=== PATIENT | male | born 1995 | race Caucasian/White ===

== ENCOUNTER 2017-10-09 13:59 | Emergency (ER) | payer BC ==
[2017-10-09] MEDS ORDERED: SODIUM CHLORIDE 0.9% 1,000 ML IV STA (14:33)
[2017-10-09] MEDS ORDERED: DICYCLOMINE 10 MG/ML 2 ML AMP IM STA (14:33)
[2017-10-09] MEDS ORDERED: ONDANSETRON 4 MG/2 ML VIAL IVP STA (14:33)
[2017-10-09] MEDS ORDERED: FAMOTIDINE 20 MG/2 ML VIAL IV STA (14:34)
--- NOTE | 2017-10-09 14:37 | ED ---
General Adult HPI - General Chief complaint: Nausea/Vomiting/Diarrhea Stated complaint: Vomiting Time Seen by Provider: 10/09/17 14:21 Source: patient, RN notes reviewed Mode of arrival: ambulatory Limitations: no limitations - History of Present Illness Initial comments: Patient is a pleasant 22-year-old male presenting to the emergency Department with complaints of nausea vomiting and diarrhea. Onset was early this morning. Patient has vomited around 4 times. Patient still has nausea. Patient has only been able to tolerate around a half a glass of water today and a couple crackers. Patient has had a few episodes of diarrhea. Patient does have some waxing and waning epigastric cramping. No history of chronic abdominal problems. No fever. - Related Data Previous Rx's Medication Instructions Recorded Ondansetron Odt [Zofran Odt] 4 mg PO Q8HR PRN #10 tab 10/09/17 Allergies Allergy/AdvReac Type Severity Reaction Status Date / Time sulfamethoxazole Allergy Unknown Verified 10/09/17 14:42 [From Bactrim] trimethoprim [From Bactrim] Allergy Unknown Verified 10/09/17 14:42 Review of Systems ROS Statement: Those systems with pertinent positive or pertinent negative responses have been documented in the HPI. ROS Other: All systems not noted in ROS Statement are negative. Constitutional: Denies: fever, chills Eyes: Denies: eye pain ENT: Denies: ear pain Respiratory: Denies: cough, dyspnea Cardiovascular: Denies: chest pain Endocrine: Denies: fatigue Gastrointestinal: Reports: abdominal pain, nausea, vomiting, diarrhea Genitourinary: Denies: dysuria Musculoskeletal: Denies: back pain Skin: Denies: rash Neurological: Denies: weakness Past Medical History Past Medical History: No Reported History History of Any Multi-Drug Resistant Organisms: None Reported Past Surgical History: Orthopedic Surgery Additional Past Surgical History / Comment(s): knee surgery Past Psychological History: No Psychological Hx Reported Smoking Status: Never smoker Past Alcohol Use History: None Reported Past Drug Use History: None Reported General Exam Limitations: no limitations General appearance: alert, in no apparent distress Head exam: Present: atraumatic Eye exam: Present: normal appearance, PERRL ENT exam: Present: normal oropharynx Neck exam: Present: normal inspection Respiratory exam: Present: normal lung sounds bilaterally Cardiovascular Exam: Present: regular rate, normal rhythm Expanded Peripheral pulses: 2+: Posterior Tibialis (R), Posterior Tibialis (L) GI/Abdominal exam: Present: soft, tenderness (Mild tenderness to the epigastrium ), diminished bowel sounds. Absent: distended, guarding, rebound, rigid, pulsatile mass Extremities exam: Present: normal inspection Neurological exam: Present: alert Psychiatric exam: Present: normal affect, normal mood Skin exam: Present: normal color Course Vital Signs 10/09/17 14:12 Temperature 98.5 F Pulse Rate 83 Respiratory 16 Rate Blood Pressure 124/54 O2 Sat by Pulse 100 Oximetry Medical Decision Making - Medical Decision Making Patient reevaluated and resting comfortably in bed. Patient feels better. No nausea. Patient comfortable with discharge home. Patient and family updated on results and need for follow-up - Lab Data Result diagrams: 10/09/17 15:00 10/09/17 15:00 Lab Results 10/09/17 10/09/17 10/09/17 Range/Units 15:00 15:00 15:00 WBC 13.4 H (3.8-10.6) k/uL RBC 5.65 (4.30-5.90) m/uL Hgb 16.3 (13.0-17.5) gm/dL Hct 48.5 (39.0-53.0) % MCV 85.8 (80.0-100.0) fL MCH 28.9 (25.0-35.0) pg MCHC 33.7 (31.0-37.0) g/dL RDW 12.3 (11.5-15.5) % Plt Count 200 (150-450) k/uL Neutrophils % 91 % Lymphocytes % 5 % Monocytes % 3 % Eosinophils % 1 % Basophils % 0 % Neutrophils # 12.2 H (1.3-7.7) k/uL Lymphocytes # 0.7 L (1.0-4.8) k/uL Monocytes # 0.3 (0-1.0) k/uL Eosinophils # 0.1 (0-0.7) k/uL Basophils # 0.0 (0-0.2) k/uL PT 11.0 (9.0-12.0) sec INR 1.1 (<1.2) APTT 25.2 (22.0-30.0) sec Sodium 142 (137-145) mmol/L Potassium 4.6 (3.5-5.1) mmol/L Chloride 101 (98-107) mmol/L Carbon Dioxide 27 (22-30) mmol/L Anion Gap 14 mmol/L BUN 21 H (9-20) mg/dL Creatinine 0.97 (0.66-1.25) mg/dL Est GFR (MDRD) Af Amer >60 (>60 ml/min/1.73 sqM) Est GFR (MDRD) Non-Af >60 (>60 ml/min/1.73 sqM) Glucose 100 H (74-99) mg/dL Calcium 10.3 H (8.4-10.2) mg/dL Total Bilirubin 1.6 H (0.2-1.3) mg/dL AST 35 (17-59) U/L ALT 48 (21-72) U/L Alkaline Phosphatase 41 (38-126) U/L Total Protein 8.0 (6.3-8.2) g/dL Albumin 4.9 (3.5-5.0) g/dL Amylase 77 (30-110) U/L Lipase 101 (23-300) U/L Urine Color Urine Appearance (Clear) Urine pH (5.0-8.0) Ur Specific [place] (1.001-1.035) Urine Protein (Negative) Urine Glucose (UA) (Negative) Urine Blood (Negative) Urine Nitrite (Negative) Urine Bilirubin (Negative) Urine Urobilinogen (<2.0) mg/dL Ur Leukocyte Esterase (Negative) 10/09/17 Range/Units 15:25 WBC (3.8-10.6) k/uL RBC (4.30-5.90) m/uL Hgb (13.0-17.5) gm/dL Hct (39.0-53.0) % MCV (80.0-100.0) fL MCH (25.0-35.0) pg MCHC (31.0-37.0) g/dL RDW (11.5-15.5) % Plt Count (150-450) k/uL Neutrophils % % Lymphocytes % % Monocytes % % Eosinophils % % Basophils % % Neutrophils # (1.3-7.7) k/uL Lymphocytes # (1.0-4.8) k/uL Monocytes # (0-1.0) k/uL Eosinophils # (0-0.7) k/uL Basophils # (0-0.2) k/uL PT (9.0-12.0) sec INR (<1.2) APTT (22.0-30.0) sec Sodium (137-145) mmol/L Potassium (3.5-5.1) mmol/L Chloride (98-107) mmol/L Carbon Dioxide (22-30) mmol/L Anion Gap mmol/L BUN (9-20) mg/dL Creatinine (0.66-1.25) mg/dL Est GFR (MDRD) Af Amer (>60 ml/min/1.73 sqM) Est GFR (MDRD) Non-Af (>60 ml/min/1.73 sqM) Glucose (74-99) mg/dL Calcium (8.4-10.2) mg/dL Total Bilirubin (0.2-1.3) mg/dL AST (17-59) U/L ALT (21-72) U/L Alkaline Phosphatase (38-126) U/L Total Protein (6.3-8.2) g/dL Albumin (3.5-5.0) g/dL Amylase (30-110) U/L Lipase (23-300) U/L Urine Color Yellow Urine Appearance Clear (Clear) Urine pH 5.5 (5.0-8.0) Ur Specific [place] 1.024 (1.001-1.035) Urine Protein Trace H (Negative) Urine Glucose (UA) Negative (Negative) Urine Blood Negative (Negative) Urine Nitrite Negative (Negative) Urine Bilirubin Negative (Negative) Urine Urobilinogen <2.0 (<2.0) mg/dL Ur Leukocyte Esterase Negative (Negative) - Radiology Data Radiology results: image reviewed (Abdominal x-ray shows no acute process) Disposition Clinical Impression: Vomiting Disposition: HOME SELF-CARE Condition: Stable Instructions: Acute Nausea and Vomiting (ED), Acute Diarrhea (ED) Additional Instructions: Please follow-up to primary care physician in the next couple days for recheck. Return for uncontrolled vomiting, fevers, abdominal pain, worsening or change in symptoms or other concerns. Please have your primary care physician recheck bilirubin and white blood cell count and the near future. [id number] Imodium if needed for diarrhea Prescriptions: Ondansetron Odt [Zofran Odt] 4 mg PO Q8HR PRN #10 tab PRN Reason: Nausea Referrals: Garret Padron MD [Primary Care Provider] - 1-2 days Time of Disposition: 15:51
[2017-10-09 15:14] LABS: Basophils % (A) 0 %; Eosinophils # (A) 0.1 k/uL (0-0.7); Eosinophils % (A) 1 %; HCT 48.5 % (39.0-53.0); HGB 16.3 gm/dL (13.0-17.5); Lymphocytes # (A) 0.7 k/uL (1.0-4.8); Lymphocytes % (A) 5 %; MCH 28.9 pg (25.0-35.0); MCHC 33.7 g/dL (31.0-37.0); MCV 85.8 fL (80.0-100.0); Mean Platelet Volume 6.4; Monocytes # (A) 0.3 k/uL (0-1.0); Monocytes % (A) 3 %; Neutrophils # (A) 12.2 k/uL (1.3-7.7); Neutrophils % (A) 91 %; Platelet Count 200 k/uL (150-450); RBC 5.65 m/uL (4.30-5.90); RDW 12.3 % (11.5-15.5); WBC 13.4 k/uL (3.8-10.6)
[2017-10-09 15:17] LABS: ALT 48 U/L (21-72); AST 35 U/L (17-59); Albumin 4.9 g/dL (3.5-5.0); Alkaline Phosphatase 41 U/L (38-126); Amylase 77 U/L (30-110); Anion Gap 14 mmol/L; Blood Urea Nitrogen 21 mg/dL (9-20); Calcium 10.3 mg/dL (8.4-10.2); Carbon Dioxide 27 mmol/L (22-30); Chloride 101 mmol/L (98-107); Glucose 100 mg/dL (74-99); Lipase 101 U/L (23-300); Potassium 4.6 mmol/L (3.5-5.1); Sodium 142 mmol/L (137-145); Total Bilirubin 1.6 mg/dL (0.2-1.3)
--- NOTE | 2017-10-09 15:18 | XR ---
EXAMINATION TYPE: XR KUB DATE OF EXAM: 10/09/2017 3:12 PM CLINICAL HISTORY: Abdominal pain with vomiting and diarrhea today. TECHNIQUE: Two Upright KUB images of the abdomen are obtained. COMPARISON: None. FINDINGS: There is some paucity of bowel gas. Visualized gas is noted in nondistended stomach as well as small and large bowel loops scattered throughout the mid to lower abdomen and pelvis. No pneumope ritoneum is seen. Lung bases are clear. Spina bifida defect S1 level is present IMPRESSION: Overall nonspecific but strongly favor nonobstructive bowel gas pattern.
[2017-10-09 15:20] LABS: INR 1.1 (<1.2); Partial Thromboplastin Time 25.2 sec (22.0-30.0)
[2017-10-09 15:40] LABS: Appearance,Urine Clear (Clear); Bilirubin,Urine Negative (Negative); Blood,Urine Negative (Negative); Color,Urine Yellow; Glucose,Urine (UA) Negative (Negative); Ketones,Urine 3+ (Negative); Leukocyte Esterase,Urine Negative (Negative); Nitrite,Urine Negative (Negative); PH, Urine 5.5 (5.0-8.0); Protein,Urine Trace (Negative); Specific Gravity,Urine 1.024 (1.001-1.035); Urobilinogen,Urine <2.0 mg/dL (<2.0)
[2017-10-09 23:29] VITALS: BP 116/58; PULSE 73; RESP 16; TEMP 98.5
== END 2017-10-09 16:06 | disposition home or self-care (01) ==
LOC: EC 13:59
DX: R11.2 Nausea with vomiting, unspecified (principal); R19.7 Diarrhea, unspecified; R10.13 Epigastric pain; Z88.2 Allergy status to sulfonamides
CPT/HCPCS: 36415; 80053; 82150; 83690; 85025; 85610; 85730; 81003; 74018; 99284; 96374; 96375; 96361; 96372; J0500; J2405

== ENCOUNTER 2019-04-05 18:10 | Emergency (ER) | payer BC, OTHER ==
[2019-04-05 19:31] VITALS: RESP 18
--- NOTE | 2019-04-05 20:04 | XR ---
EXAMINATION TYPE: XR wrist complete LT 4 views, XR hand complete LT 3 views DATE OF EXAM: 04/05/2019 COMPARISON: NONE HISTORY: 23-year-old male with hand and wrist pain for 4 weeks FINDINGS: Wrist: Mild soft tissue swelling. Radiocarpal and distal radioulnar joints as well as the midcarpal compartm ent appear intact. No acute fracture, subluxation, or dislocation. Hand: Joint spaces are maintained. No acute fracture, subluxation, or dislocation. IMPRESSION: Left wrist and hand without acute osseous abnormality seen.
--- NOTE | 2019-04-05 20:25 | ED ---
General Adult HPI - General Chief complaint: Extremity Injury, Upper Stated complaint: Wrist pain Time Seen by Provider: 04/05/19 20:04 Source: patient, RN notes reviewed, old records reviewed Mode of arrival: ambulatory Limitations: no limitations - History of Present Illness Initial comments: 23-year-old male patient presents to the approximate 1 month of left wrist and hand pain. Patient denies any falls or trauma. Patient reports that the pain is worse in the morning. His gait is well-controlled with paresthesias. Patient reports a history of general soreness in his distal wrist region. No focal area of tenderness. No erythema or swelling. Denies any other complaints. Systemic: Pt denies fatigue, fever/chills, rash. Pt denies weakness, night sweats, weight loss. Neuro: Pt denies headache, visual disturbances, syncope or pre-syncope. HEENT: Pt denies ocular discharge or irritation, otalgia, rhinorrhea, pharyngitis or notable lymphadenopathy. Cardiopulmonary: Pt denies chest pain, SOB, heart palpitations, dyspnea on exertion. Abdominal/GI: Pt denies abdominal pain, n/v/d. : Pt denies dysuria, burning w/ urination, frequency/urgency. Denies new onset urinary or bowel incontinence. MSK: Pt denies loss of strength or function in extremities. Neuro: Pt denies new onset weakness, paresthesias. - Related Data Previous Rx's Medication Instructions Recorded Ondansetron Odt [Zofran Odt] 4 mg PO Q8HR PRN #10 tab 10/09/17 Ibuprofen [Motrin] 600 mg PO Q8HR PRN #40 day 04/05/19 Allergies Allergy/AdvReac Type Severity Reaction Status Date / Time sulfamethoxazole Allergy Unknown Verified 04/05/19 19:31 [From Bactrim] trimethoprim [From Bactrim] Allergy Unknown Verified 04/05/19 19:31 Review of Systems ROS Statement: Those systems with pertinent positive or pertinent negative responses have been documented in the HPI. ROS Other: All systems not noted in ROS Statement are negative. Past Medical History Past Medical History: No Reported History History of Any Multi-Drug Resistant Organisms: None Reported Past Surgical History: Orthopedic Surgery Additional Past Surgical History / Comment(s): knee surgery Past Psychological History: No Psychological Hx Reported Smoking Status: Never smoker Past Alcohol Use History: None Reported Past Drug Use History: None Reported General Exam - General Exam Comments Initial Comments: Constitutional: NAD, AOX3, Pt has pleasant affect. HEENT: NC/AT, trachea midline, neck supple, no lymphadenopathy. Posterior pharynx non erythematous, without exudates. External ears appear normal, without discharge. Mucous membranes moist. Eyes PERRLA, EOM intact. There is no scleral icterus. No pallor noted. Cardiopulmonary: RRR, no murmurs, rubs or gallops, no JVD noted. Lungs CTAB in anterior and posterior mustafa. No peripheral edema. Abdominal exam: Abdomen soft and non-distended. Abdomen non-tender to palpation in all 4 quadrants. Bowel sounds active in LLQ. No hepatosplenomegaly. No ecchymosis Neuro: CN II-XII grossly intact. No nuchal rigidity. No raccon eyes, no bruno sign, no hemotympanum. No cervical spinal tenderness. MSK: Full active range of motion of wrist and hand. No erythema no ecchymoses. Mild amount of tenderness to palpation at dorsal mid wrist, no snuffbox tenderness. No posterior calf tenderness bilaterally, homans sign negative bilaterally. Posterior tibialis and radial pulse +2 bilaterally. Sensation intact in upper and lower extremities. Full active ROM in upper and lower ext remities, 5/5 stregnth. Limitations: no limitations Course Vital Signs 04/05/19 19:28 Temperature 98.4 F Pulse Rate 60 Respiratory 18 Rate Blood Pressure 115/70 O2 Sat by Pulse 100 Oximetry Medical Decision Making - Medical Decision Making 23-year-old male patient presents to the approximate 1 month of left wrist and hand pain. Patient denies any falls or trauma. Patient reports that the pain is worse in the morning. His gait is well-controlled with paresthesias. Patient reports a history of general soreness in his distal wrist region. No focal area of tenderness. No erythema or swelling. Denies any other complaints. Pt VSS, afebrile. Physical exam displayed: Full active range of motion of wrist and hand. No erythema no ecchymoses. Mild amount of tenderness to palpation at dorsal mid wrist, no snuffbox tenderness. No acute osseous abnormality seen in left wrist and hand. Patient's symptoms persistent with carpal tunnel leg syndrome. Patient will be discharged with nonsteroidal anti-inflammatories. Patient advised to obtain neutral splints to sleep in. Patient referred to orthopedics for further evaluation. Case discussed with Dr. Coe. Disposition Clinical Impression: Arthralgia Disposition: HOME SELF-CARE Condition: Stable Instructions (If sedation given, give patient instructions): Wrist Sprain (ED) Additional Instructions: Patient to adhere to previously discussed treatment plan and will take medication(s) as directed. Patient to follow up with PCP in 1-2 days. Patient to return to ED if symptoms do not improve. Use ibuprofen for 4 days 600mg every 8 hours. Follow up with orthopedic consult and PCP in 1-2 days. Buy neutral splints for wrist to sleep in. Prescriptions: Ibuprofen [Motrin] 600 mg PO Q8HR PRN #40 day PRN Reason: Pain Is patient prescribed a controlled substance at d/c from ED?: No Referrals: Garret Padron MD [Primary Care Provider] - 1-2 days Prasanna Kramer MD [STAFF PHYSICIAN] - 1-2 days
[2019-04-05 20:36] VITALS: BP 120/73; PULSE 67; TEMP 98
== END 2019-04-05 20:36 | disposition home or self-care (01) ==
LOC: EC 18:10
DX: M25.532 Pain in left wrist (principal); M25.542 Pain in joints of left hand; Z88.1 Allergy status to other antibiotic agents; Z88.2 Allergy status to sulfonamides
CPT/HCPCS: 99284

== ENCOUNTER 2019-04-30 20:09 | Emergency (ER) | payer BC, OTHER ==
[2019-04-30 23:02] LABS: Basophils % (A) 0 %; Eosinophils # (A) 0.3 k/uL (0-0.7); Eosinophils % (A) 3 %; HCT 43.1 % (39.0-53.0); Lymphocytes % (A) 37 %; MCH 27.4 pg (25.0-35.0); MCHC 32.4 g/dL (31.0-37.0); MCV 84.6 fL (80.0-100.0); Mean Platelet Volume 6.7; Monocytes # (A) 0.4 k/uL (0-1.0); Monocytes % (A) 5 %; Neutrophils # (A) 4.3 k/uL (1.3-7.7); Neutrophils % (A) 52 %; Platelet Count 225 k/uL (150-450); RDW 12.9 % (11.5-15.5); WBC 8.1 k/uL (3.8-10.6)
[2019-04-30 23:25] LABS: ALT 17 U/L (21-72); AST 37 U/L (17-59); African American GFR (CKD) >90 (>60 ml/min/1.73 sqM); Albumin 4.6 g/dL (3.5-5.0); Alkaline Phosphatase 32 U/L (38-126); Anion Gap 11 mmol/L; Blood Urea Nitrogen 20 mg/dL (9-20); Calcium 9.5 mg/dL (8.4-10.2); Carbon Dioxide 27 mmol/L (22-30); Chloride 104 mmol/L (98-107); Glucose 77 mg/dL (74-99); Sodium 142 mmol/L (137-145); Total Bilirubin 0.7 mg/dL (0.2-1.3); Total Protein 7.1 g/dL (6.3-8.2)
--- NOTE | 2019-04-30 23:41 | CT ---
EXAM: CT Abdomen and Pelvis With Intravenous Contrast CLINICAL HISTORY: Abdominal pain TECHNIQUE: Axial computed tomography images of the abdomen and pelvis with intravenous contrast. CTDI is 0.085, 0.085, 5.1, 4.9 mGy and DLP is 459. 3 mGy-cm. This CT exam was performed using one or more of the following dose reduction techniques: automated exposure control, adjustment of the mA and/or kV according to patient size, and/or use of iterative reconstruction technique. COMPARISON: No relevant prior studies available. FINDINGS: Lung bases: Unremarkable. No mass. No consolidation. ABDOMEN: Liver: Unremarkable. Gallbladder and bile ducts: Unremarkable. Pancreas: Unremarkable. Spleen: Unremarkable. Adrenals: Unremarkable. Kidneys and ureters: Unremarkable. Stomach and bowel: Unremarkable. PELVIS: Appendix: Appendix is not visualized. Bladder: Unremarkable. Reproductive: Unremarkable as visualized. ABDOMEN and PELVIS: Intraperitoneal space: Unremarkable. Bones/joints: No acute fracture. No dislocation. Soft tissues: Unremarkable. Vasculature: Unremarkable. No abdominal aortic aneurysm. Lymph nodes: Unremarkable. IMPRESSION: No acute findings.
[2019-04-30 23:59] LABS: Amorphous Sediment,Urine Occasional /hpf; Appearance,Urine Cloudy (Clear); Bilirubin,Urine Negative (Negative); Blood,Urine Negative (Negative); Color,Urine Yellow; Glucose,Urine (UA) Negative (Negative); Ketones,Urine Negative (Negative); Leukocyte Esterase,Urine Negative (Negative); Mucus,Urine Rare /hpf; Nitrite,Urine Negative (Negative); Protein,Urine Negative (Negative); Specific Gravity,Urine 1.019 (1.001-1.035); Squamous Epithelial Cell,Urine <1 /hpf (0-4); Urobilinogen,Urine <2.0 mg/dL (<2.0)
[2019-05-01 00:31] LABS: Potassium 4.3 mmol/L (3.5-5.1)
--- NOTE | 2019-05-01 01:31 | US ---
EXAM: US Abdomen Limited, Right Upper Quadrant CLINICAL HISTORY: Pain TECHNIQUE: Real-time ultrasound of the right upper quadrant with image documentation. COMPARISON: No relevant prior studies available. FINDINGS: Liver: Unremarkable. No mass. No intrahepatic bile duct dilation. Gallbladder: Unremarkable. No gallstones. Common bile duct: Measures up to 4 mm. No stones. No dilation. Pancreas: Unremarkable as visualized. Right kidney: Unremarkable. No stones. No solid mass. No hydronephrosis. IMPRESSION: Normal right upper quadrant ultrasound.
--- NOTE | 2019-05-01 01:42 | ED ---
Abdominal Pain HPI - General Chief Complaint: Abdominal Pain Stated Complaint: Abd pain Time Seen by Provider: 04/30/19 20:23 Source: patient Mode of arrival: ambulatory Limitations: no limitations - History of Present Illness Initial Comments: The patient is a 23-year-old male who presents emergency department with 2 week history of right upper quadrant abdominal pain. Reports that the pain always occurs after he eats dinner. He describes it as a crampy sensation without radiation. He denies any nausea or vomiting. Denies any changes in his uri [place] to include dysuria, hematuria or difficulty voiding. Denies any changes in his bowel movements including diarrhea, constipation, melanotic stool or hematochezia. Denies eating any tainted food. No chest pain or shortness of breath. Denies any fevers or chills. No history of similar in the past. Denies any abdominal trauma. There are no other alleviating, precipitating or modifying factors - Related Data Home Medications Medication Instructions Recorded Confirmed Diclofenac Sodium [Voltaren] 75 mg PO BID 04/30/19 04/30/19 Doxycycline Monohydrate [Monodox] 100 mg PO BID 04/30/19 04/30/19 Previous Rx's Medication Instructions Recorded Omeprazole [PriLOSEC] 20 mg PO DAILY #30 cap 05/01/19 Sucralfate [Carafate] 1 gm PO ACHS #56 tablet 05/01/19 Allergies Allergy/AdvReac Type Severity Reaction Status Date / Time sulfamethoxazole Allergy Unknown Verified 04/30/19 20:33 [From Bactrim] trimethoprim [From Bactrim] Allergy Unknown Verified 04/30/19 20:33 Review of Systems ROS Statement: Those systems with pertinent positive or pertinent negative responses have been documented in the HPI. ROS Other: All systems not noted in ROS Statement are negative. Past Medical History Past Medical History: No Reported History History of Any Multi-Drug Resistant Organisms: None Reported Past Surgical History: Orthopedic Surgery Additional Past Surgical History / Comment(s): knee surgery Past Psychological History: No Psychological Hx Reported Smoking Status: Never smoker Past Alcohol Use History: None Reported Past Drug Use History: None Reported General Exam Limitations: no limitations General appearance: alert, in no apparent distress Head exam: Present: atraumatic, normocephalic, normal inspection Eye exam: Present: normal appearance, PERRL, EOMI. Absent: scleral icterus, conjunctival injection, periorbital swelling ENT exam: Present: normal exam, mucous membranes moist Neck exam: Present: normal inspection. Absent: tenderness, meningismus, lymphadenopathy Respiratory exam: Present: normal lung sounds bilaterally. Absent: respiratory distress, wheezes, rales, rhonchi, stridor Cardiovascular Exam: Present: regular rate, normal rhythm, normal heart sounds. Absent: systolic murmur, diastolic murmur, rubs, gallop, clicks GI/Abdominal exam: Present: soft, tenderness (right upper quadrant), normal bowel sounds. Absent: distended, guarding, rebound, rigid, pulsatile mass Extremities exam: Present: normal inspection, full ROM, normal capillary refill. Absent: tenderness, pedal edema, joint swelling, calf tenderness Back exam: Present: normal inspection Neurological exam: Present: alert, oriented X3, CN II-XII intact Psychiatric exam: Present: normal affect, normal mood Skin exam: Present: warm, dry, intact, normal color. Absent: rash Course Vital Signs 04/30/19 04/30/19 04/30/19 20:18 21:12 23:27 Temperature 98.2 F 97.8 F 97.4 F L Pulse Rate 69 70 58 L Respiratory 16 16 16 Rate Blood Pressure 109/55 127/70 119/65 O2 Sat by Pulse 98 100 98 Oximetry 05/01/19 01:53 Temperature 97.1 F L Pulse Rate 60 Respiratory 18 Rate Blood Pressure 100/49 O2 Sat by Pulse 99 Oximetry Medical Decision Making - Medical Decision Making Upon arrival the patient was placed into room 28. He is hooked up to continuous pulse ox and cardiac monitoring. Peripheral IV was established. Laboratory studies were conducted. The patient was sent for a CT of his abdomen and pelvis as well as a GB ultrasound. Upon return of the results, they're discussed patient. I did discuss diagnosis, differential and treatment options. The patient states that he is pain-free at this time. I did recommend discharge home and following up with a GI physician in office for further evaluation. I did inform him that he may need an EGD and HIDA scan. I will provide the pa tient with a prescription for omeprazole and Carafate. He should also follow-up with his primary care physician 1-2 days. If he has any new or worsening symptoms, he should return to the emergency room. Patient was in agreement treatment plan and was discharged home in stable condition - Differential Diagnosis acute abd pain, biliary dyskinesia, PUD, esophagitis - Lab Data Result diagrams: 04/30/19 21:07 04/30/19 21:07 Lab Results 04/30/19 04/30/19 04/30/19 Range/Units 21:07 21:07 21:07 WBC 8.1 (3.8-10.6) k/uL RBC 5.10 (4.30-5.90) m/uL Hgb 14.0 (13.0-17.5) gm/dL Hct 43.1 (39.0-53.0) % MCV 84.6 (80.0-100.0) fL MCH 27.4 (25.0-35.0) pg MCHC 32.4 (31.0-37.0) g/dL RDW 12.9 (11.5-15.5) % Plt Count 225 (150-450) k/uL Neutrophils % 52 % Lymphocytes % 37 % Monocytes % 5 % Eosinophils % 3 % Basophils % 0 % Neutrophils # 4.3 (1.3-7.7) k/uL Lymphocytes # 3.0 (1.0-4.8) k/uL Monocytes # 0.4 (0-1.0) k/uL Eosinophils # 0.3 (0-0.7) k/uL Basophils # 0.0 (0-0.2) k/uL Sodium 142 (137-145) mmol/L Potassium 4.3 (3.5-5.1) mmol/L Chloride 104 (98-107) mmol/L Carbon Dioxide 27 (22-30) mmol/L Anion Gap 11 mmol/L BUN 20 (9-20) mg/dL Creatinine 0.94 (0.66-1.25) mg/dL Est GFR (CKD-EPI)AfAm >90 (>60 ml/min/1.73 sqM) Est GFR (CKD-EPI)NonAf >90 (>60 ml/min/1.73 sqM) Glucose 77 (74-99) mg/dL Plasma Lactic Acid Jamar 1.2 (0.7-2.0) mmol/L Calcium 9.5 (8.4-10.2) mg/dL Total Bilirubin 0.7 (0.2-1.3) mg/dL AST 37 (17-59) U/L ALT 17 L (21-72) U/L Alkaline Phosphatase 32 L (38-126) U/L Total Protein 7.1 (6.3-8.2) g/dL Albumin 4.6 (3.5-5.0) g/dL Lipase 196 (23-300) U/L Urine Color Urine Appearance (Clear) Urine pH (5.0-8.0) Ur Specific [place] (1.001-1.035) Urine Protein (Negative) Urine Glucose (UA) (Negative) Urine Ketones (Negative) Urine Blood (Negative) Urine Nitrite (Negative) Urine Bilirubin (Negative) Urine Urobilinogen (<2.0) mg/dL Ur Leukocyte Esterase (Negative) Ur Squamous Epith Cells (0-4) /hpf Amorphous Sediment (None) /hpf Urine Mucus (None) /hpf 04/30/19 Range/Units 21:07 WBC (3.8-10.6) k/uL RBC (4.30-5.90) m/uL Hgb (13.0-17.5) gm/dL Hct (39.0-53.0) % MCV (80.0-100.0) fL MCH (25.0-35.0) pg MCHC (31.0-37.0) g/dL RDW (11.5-15.5) % Plt Count (150-450) k/uL Neutrophils % % Lymphocytes % % Monocytes % % Eosinophils % % Basophils % % Neutrophils # (1.3-7.7) k/uL Lymphocytes # (1.0-4.8) k/uL Monocytes # (0-1.0) k/uL Eosinophils # (0-0.7) k/uL Basophils # (0-0.2) k/uL Sodium (137-145) mmol/L Potassium (3.5-5.1) mmol/L Chloride (98-107) mmol/L Carbon Dioxide (22-30) mmol/L Anion Gap mmol/L BUN (9-20) mg/dL Creatinine (0.66-1.25) mg/dL Est GFR (CKD-EPI)AfAm (>60 ml/min/1.73 sqM) Est GFR (CKD-EPI)NonAf (>60 ml/min/1.73 sqM) Glucose (74-99) mg/dL Plasma Lactic Acid Jamar (0.7-2.0) mmol/L Calcium (8.4-10.2) mg/dL Total Bilirubin (0.2-1.3) mg/dL AST (17-59) U/L ALT (21-72) U/L Alkaline Phosphatase (38-126) U/L Total Protein (6.3-8.2) g/dL Albumin (3.5-5.0) g/dL Lipase (23-300) U/L Urine Color Yellow Urine Appearance Cloudy (Clear) Urine pH 7.0 (5.0-8.0) Ur Specific [place] 1.019 (1.001-1.035) Urine Protein Negative (Negative) Urine Glucose (UA) Negative (Negative) Urine Ketones Negative (Negative) Urine Blood Negative (Negative) Urine Nitrite Negative (Negative) Urine Bilirubin Negative (Negative) Urine Urobilinogen <2.0 (<2.0) mg/dL Ur Leukocyte Esterase Negative (Negative) Ur Squamous Epith Cells <1 (0-4) /hpf Amorphous Sediment Occasional H (None) /hpf Urine Mucus Rare H (None) /hpf - EKG Data EKG Comments: EKG demonstrates a sinus bradycardia with a ventricular rate of 57. [place] interval 158. QRS 86. QTC of 401. There is ST segment elevation in leads V2 through V6 . No reciprocal changes. Disposition Clinical Impression: Abdominal pain Disposition: HOME SELF-CARE Condition: Stable Instructions (If sedation given, give patient instructions): Abdominal Pain (ED) Additional Instructions: Please follow-up with your primary care doctor within one to 2 days. You should see the GI doctor within 1 week. I recommend a HIDA scan and EGD. Return to the emergency room for any new or worsening symptoms Prescriptions: Sucralfate [Carafate] 1 gm PO ACHS #56 tablet Omeprazole [PriLOSEC] 20 mg PO DAILY #30 cap Is patient prescribed a controlled substance at d/c from ED?: No Referrals: Garret Padron MD [Primary Care Provider] - 1-2 days Reji Rocha MD [STAFF PHYSICIAN] - 1-2 days Time of Disposition: 01:42
[2019-05-01 01:56] VITALS: BP 100/49; PULSE 60; RESP 18; TEMP 97.1
== END 2019-05-01 01:56 | disposition home or self-care (01) ==
LOC: EC 20:09
DX: R10.11 Right upper quadrant pain (principal); Z79.1 Long term (current) use of non-steroidal anti-inflammatories (NSAID); Z88.2 Allergy status to sulfonamides
CPT/HCPCS: 36415; 93005; 80053; 83605; 83690; 85025; 81001; 76705; 74177; 99284; Q9967

== ENCOUNTER 2019-11-10 11:33 | Emergency (ER) | payer BC, OTHER ==
[2019-11-10 11:38] VITALS: BP 147/88; PULSE 103; RESP 22; TEMP 98.8
--- NOTE | 2019-11-10 12:07 | XR ---
EXAMINATION TYPE: XR chest 2V DATE OF EXAM: 11/10/2019 COMPARISON: NONE HISTORY: Cough congestion and fever. TECHNIQUE: Frontal and lateral views of the chest are obtained. FINDINGS: Hyperinflation with mild biapical pleural/parenchymal scarring. Early emphysematous changes not excluded. There is no focal air space opacity, pleural effusion, or pneumothorax seen. The car diac silhouette size is within normal limits. The osseous structures are intact. IMPRESSION: No suspicious acute infiltrate.
--- NOTE | 2019-11-10 12:22 | ED ---
URI HPI - General Chief Complaint: Upper Respiratory Infection Stated Complaint: Upper respitory issues Time Seen by Provider: 11/10/19 11:41 Source: patient, RN notes reviewed Mode of arrival: ambulatory Limitations: no limitations - History of Present Illness Initial Comments: 24-year-old male presents emergency Department chief complaint of fever cough congestion. Symptoms started on Saturday. Patient states that his son was diagnosed with influenza and pneumonia. Patient states he has had slight productive cough he states he aches all over. He's been taking some Motrin. Patient denies any chest pain or shortness of breath. Patient states that he is normally healthy he has not taken any [id number] cough and cold medication. Denies any nausea vomiting diarrhea constipation. - Related Data Home Medications Medication Instructions Recorded Confirmed Diclofenac Sodium [Voltaren] 75 mg PO BID 04/30/19 04/30/19 Doxycycline Monohydrate [Monodox] 100 mg PO BID 04/30/19 04/30/19 Previous Rx's Medication Instructions Recorded Omeprazole [PriLOSEC] 20 mg PO DAILY #30 cap 05/01/19 Sucralfate [Carafate] 1 gm PO ACHS #56 tablet 05/01/19 Allergies Allergy/AdvReac Type Severity Reaction Status Date / Time sulfamethoxazole Allergy Unknown Verified 11/10/19 11:38 [From Bactrim] trimethoprim [From Bactrim] Allergy Unknown Verified 11/10/19 11:38 Review of Systems ROS Statement: Those systems with pertinent positive or pertinent negative responses have been documented in the HPI. ROS Other: All systems not noted in ROS Statement are negative. Past Medical History Past Medical History: No Reported History History of Any Multi-Drug Resistant Organisms: None Reported Past Surgical History: Orthopedic Surgery Additional Past Surgical History / Comment(s): knee surgery x3 Past Psychological History: Unable to Obtain Smoking Status: Former smoker Past Alcohol Use History: Occasional Past Drug Use History: None Reported General Exam Limitations: no limitations General appearance: alert, in no apparent distress Head exam: Present: atraumatic, normocephalic, normal inspection Eye exam: Present: normal appearance, PERRL, EOMI. Absent: scleral icterus, conjunctival injection, periorbital swelling ENT exam: Present: normal exam, normal oropharynx, mucous membranes moist Neck exam: Present: normal inspection, full ROM. Absent: tenderness, meningismus, lymphadenopathy Respiratory exam: Present: normal lung sounds bilaterally. Absent: respiratory distress, wheezes, rales, rhonchi, stridor Cardiovascular Exam: Present: regular rate, normal rhythm, normal heart sounds. Absent: systolic murmur, diastolic murmur, rubs, gallop, clicks GI/Abdominal exam: Present: soft, normal bowel sounds. Absent: distended, tenderness, guarding, rebound, rigid Course Vital Signs 11/10/19 11:35 Temperature 98.8 F Pulse Rate 103 H Respiratory 22 Rate Blood Pressure 147/88 O2 Sat by Pulse 100 Oximetry Medical Decision Making - Medical Decision Making Chest x-rays unremarkable, influenza A+. Patient's symptoms started on Saturday with esophageal template this time increase fluids, Tylenol Motrin return parameters were discussed. - Lab Data Lab Results 11/10/19 Range/Units 11:36 Influenza Type A RNA Detected H (Not Detectd) Influenza Type B (PCR) Not Detected (Not Detectd) Disposition Clinical Impression: Influenza Disposition: HOME SELF-CARE Condition: Stable Instructions (If sedation given, give patient instructions): Influenza (ED) Additional Instructions: Please return to the Emergency Department if symptoms worsen or any other concerns. Is patient prescribed a controlled substance at d/c from ED?: No Referrals: None,Stated [Primary Care Provider] - 1-2 days Time of Disposition: 12:22
== END 2019-11-10 12:28 | disposition home or self-care (01) ==
LOC: EC 11:33
DX: J10.1 Influenza due to other identified influenza virus with other respiratory manifestations (principal); Z79.899 Other long term (current) drug therapy; Z88.1 Allergy status to other antibiotic agents; Z88.2 Allergy status to sulfonamides; Z87.891 Personal history of nicotine dependence
CPT/HCPCS: 71046; 87502; 99283